=== PATIENT | male | born 1940 | race Caucasian/White ===

== ENCOUNTER 2016-06-17 10:44 | Inpatient (IN) | payer MEDICARE, BC ==
[~2016-06-17] VITALS: Ht 180.3 cm; Wt 114.7 kg
[2016-06-17] VITALS (8 sets, daily range): BP systolic 109–163; RESP 16–26; TEMP 97.4–99; Ht 180.3 cm; Wt 114.7 kg
[2016-06-17] MEDS ORDERED: ACETAMINOPHEN 325 MG TAB PO PRN (11:15)
[2016-06-17] MEDS ORDERED: GLUCAGON 1 MG VIAL IM PRN (11:15)
[2016-06-17] MEDS ORDERED: ONDANSETRON 4 MG VIAL IV PRN (11:15)
[2016-06-17] MEDS ORDERED: MAG HYDROX 30 ML UDC PO PRN (11:15)
[2016-06-17] MEDS ORDERED: SODIUM CHLORIDE 0.9% 1,000 ML IV SCH (11:15)
[2016-06-17] MEDS ORDERED: ALU/MAG/SIM 30 ML UDC PO PRN (11:15)
[2016-06-17] MEDS ORDERED: PANTOPRAZOLE 40 MG VIAL IV SCH (11:15)
[2016-06-17] MEDS ORDERED: DEXTROSE 50% SYRINGE 50 ML IV PRN (11:15)
[2016-06-17] MEDS ORDERED: IVIG IV SCH (17:15)
[2016-06-17] MEDS ORDERED: FILL PIGGYBACK IV SCH (17:15)
[2016-06-17] MEDS: LEVOTHYROXINE 0.175 MG TAB PO SCH (20:00)
[2016-06-17] MEDS: KCL CR 8 MEQ TAB PO SCH (20:00)
[2016-06-17] MEDS: Furosemide 20 MG TAB PO SCH (20:00)
[2016-06-17] MEDS: [UNRECOGNIZED DRUG - OTHER] IV SCH (20:00)
[2016-06-17] MEDS: SODIUM CHLORIDE 0.9% IV SCH (20:00)
[2016-06-17] MEDS: DOXYCYCLINE 100 MG in SODIUM CHLORIDE 0.9% 250 ML IV SCH (21:19)
[2016-06-17] MEDS: novoLOG MIX 70/30 INSULIN SUBQ SCH (21:19)
[2016-06-18] VITALS (18 sets, daily range): BP systolic 139–181; RESP 18–28; TEMP 97.4–98.8
[2016-06-18] MEDS: FILL PIGGYBACK IV SCH ×2 (02:00→21:02)
[2016-06-18] MEDS: IVIG IV SCH ×2 (02:00→21:02)
[2016-06-18] MEDS: LEVOTHYROXINE 0.175 MG TAB PO SCH (04:37)
[2016-06-18] MEDS: PANTOPRAZOLE 40 MG TAB PO SCH ×2 (04:37→09:55)
[2016-06-18] MEDS ORDERED: DIPHENHYDRAMINE 25 MG CAP PO ONE (07:00)
[2016-06-18] MEDS ORDERED: ACETAMINOPHEN 325 MG TAB PO ONE (07:00)
[2016-06-18] MEDS: DOXYCYCLINE 100 MG in SODIUM CHLORIDE 0.9% 250 ML IV SCH ×2 (09:52→20:37)
[2016-06-18] MEDS: novoLOG MIX 70/30 INSULIN SUBQ SCH (09:54)
[2016-06-18] MEDS: KCL CR 8 MEQ TAB PO SCH (09:55)
[2016-06-18] MEDS: [UNRECOGNIZED DRUG - OTHER] IV SCH (09:55)
[2016-06-18] MEDS: SODIUM CHLORIDE 0.9% IV SCH (09:55)
[2016-06-18] MEDS: Furosemide 20 MG TAB PO SCH (09:56)
[2016-06-18] MEDS ORDERED: LEVEMIR INSULIN SUBQ ONE (12:00)
[2016-06-18] MEDS ORDERED: novoLOG MIX 70/30 INSULIN SUBQ SCH (17:00)
[2016-06-18] MEDS: FAMOTIDINE 20 MG INJ IV SCH (17:16)
[2016-06-18] MEDS ORDERED: Furosemide 20 MG/2 ML VIAL IV ONE (21:00)
[2016-06-19] VITALS (19 sets, daily range): BP systolic 152–195; RESP 16–20; TEMP 97.4–98.3
[2016-06-19] MEDS: FAMOTIDINE 20 MG INJ IV SCH ×2 (00:37→08:44)
[2016-06-19] MEDS ORDERED: novoLOG MIX 70/30 INSULIN SUBQ SCH (08:00)
[2016-06-19] MEDS: LEVOTHYROXINE 0.175 MG TAB PO SCH (08:44)
[2016-06-19] MEDS: KCL CR 8 MEQ TAB PO SCH (08:45)
[2016-06-19] MEDS: Furosemide 20 MG TAB PO SCH (08:45)
[2016-06-19] MEDS: DOXYCYCLINE 100 MG in SODIUM CHLORIDE 0.9% 250 ML IV SCH ×2 (08:48→20:51)
[2016-06-19] MEDS: [UNRECOGNIZED DRUG - OTHER] IV SCH (11:31)
[2016-06-19] MEDS: SODIUM CHLORIDE 0.9% IV SCH (11:31)
[2016-06-19] MEDS ORDERED: amLODIPine 2.5 MG TAB PO SCH (15:30)
[2016-06-19] MEDS: METOPROLOL XL 50 MG TAB PO SCH (16:23)
[2016-06-19] MEDS: novoLOG MIX 70/30 INSULIN SUBQ SCH (18:06)
[2016-06-19] MEDS ORDERED: METOPROLOL XL 50 MG TAB PO SCH (21:00)
[2016-06-19] MEDS ORDERED: cloNIDine 0.2 MG TAB PO PRN (21:35)
[2016-06-19] MEDS ORDERED: amLODIPine 5 MG TAB PO ONE (21:35)
[2016-06-19] MEDS: IVIG IV SCH (21:50)
[2016-06-19] MEDS: FILL PIGGYBACK IV SCH (21:50)
[2016-06-20] VITALS (8 sets, daily range): BP systolic 157–179; RESP 18–20; TEMP 97.2–97.7
[2016-06-20] MEDS: LEVOTHYROXINE 0.175 MG TAB PO SCH (05:58)
[2016-06-20] MEDS ORDERED: PANTOPRAZOLE 40 MG TAB PO SCH (07:00)
[2016-06-20] MEDS: DOXYCYCLINE 100 MG in SODIUM CHLORIDE 0.9% 250 ML IV SCH ×2 (08:15→20:48)
[2016-06-20] MEDS: novoLOG MIX 70/30 INSULIN SUBQ SCH ×2 (08:55→17:37)
[2016-06-20] MEDS: METOPROLOL XL 50 MG TAB PO SCH (08:56)
[2016-06-20] MEDS ORDERED: amLODIPine 5 MG TAB PO SCH ×2 (09:00→21:00)
[2016-06-20] MEDS: [UNRECOGNIZED DRUG - OTHER] IV SCH (10:32)
[2016-06-20] MEDS: SODIUM CHLORIDE 0.9% IV SCH (10:32)
[2016-06-20] MEDS ORDERED: novoLOG MIX 70/30 INSULIN SUBQ SCH (17:00)
[2016-06-20] MEDS: FILL PIGGYBACK IV SCH (20:48)
[2016-06-20] MEDS: IVIG IV SCH (20:48)
[2016-06-20] MEDS: amLODIPine 5 MG TAB PO SCH (21:13)
[2016-06-21 03:36] VITALS: BP_SYST 168; RESP 20; TEMP 97.4
[2016-06-21] MEDS: LEVOTHYROXINE 0.175 MG TAB PO SCH (06:41)
[2016-06-21 07:40] VITALS: BP_SYST 161; RESP 18; TEMP 97.4
[2016-06-21] MEDS: DOXYCYCLINE 100 MG in SODIUM CHLORIDE 0.9% 250 ML IV SCH ×2 (08:15→20:14)
[2016-06-21] MEDS: METOPROLOL XL 50 MG TAB PO SCH (08:55)
[2016-06-21] MEDS: novoLOG MIX 70/30 INSULIN SUBQ SCH ×2 (08:55→17:45)
[2016-06-21] MEDS: amLODIPine 5 MG TAB PO SCH ×2 (08:55→20:41)
[2016-06-21] MEDS: [UNRECOGNIZED DRUG - OTHER] IV SCH (10:27)
[2016-06-21] MEDS: SODIUM CHLORIDE 0.9% IV SCH (10:27)
[2016-06-21 11:34] VITALS: BP_SYST 170; RESP 21; TEMP 97.8
[2016-06-21 14:46] VITALS: BP_SYST 169; RESP 16; TEMP 97.2
[2016-06-21] MEDS ORDERED: novoLOG MIX 70/30 INSULIN SUBQ SCH (17:00)
[2016-06-21 19:35] VITALS: BP_SYST 163; RESP 18; TEMP 97.7
[2016-06-21 23:32] VITALS: BP_SYST 145; RESP 20; TEMP 97.5
[2016-06-22] VITALS (7 sets, daily range): BP systolic 146–163; RESP 18–20; TEMP 97.3–97.8
[2016-06-22] MEDS: LEVOTHYROXINE 0.175 MG TAB PO SCH (07:06)
[2016-06-22] MEDS: DOXYCYCLINE 100 MG in SODIUM CHLORIDE 0.9% 250 ML IV SCH ×2 (08:14→20:13)
[2016-06-22] MEDS: METOPROLOL XL 50 MG TAB PO SCH (08:38)
[2016-06-22] MEDS: amLODIPine 5 MG TAB PO SCH ×2 (08:38→20:13)
[2016-06-22] MEDS: novoLOG MIX 70/30 INSULIN SUBQ SCH ×2 (08:39→17:21)
[2016-06-22] MEDS: SODIUM CHLORIDE 0.9% IV SCH (10:12)
[2016-06-22] MEDS: cloNIDine 0.1 MG TAB PO SCH ×2 (10:12→20:13)
[2016-06-22] MEDS: [UNRECOGNIZED DRUG - OTHER] IV SCH (10:12)
[2016-06-22] MEDS: LEVEMIR INSULIN SUBQ SCH (10:13)
[2016-06-23 03:45] VITALS: BP_SYST 150; RESP 18; TEMP 97.7
[2016-06-23] MEDS: LEVOTHYROXINE 0.175 MG TAB PO SCH (06:09)
[2016-06-23 07:37] VITALS: BP_SYST 157; RESP 16; TEMP 97.5
[2016-06-23] MEDS: LEVEMIR INSULIN SUBQ SCH (08:09)
[2016-06-23] MEDS: novoLOG MIX 70/30 INSULIN SUBQ SCH (08:27)
[2016-06-23] MEDS: METOPROLOL XL 50 MG TAB PO SCH (08:27)
[2016-06-23] MEDS: DOXYCYCLINE 100 MG in SODIUM CHLORIDE 0.9% 250 ML IV SCH (08:27)
[2016-06-23] MEDS: amLODIPine 5 MG TAB PO SCH (08:27)
[2016-06-23] MEDS: cloNIDine 0.1 MG TAB PO SCH (08:27)
[2016-06-23] MEDS ORDERED: PREDNISONE 20 MG TAB PO SCH (09:00)
[2016-06-23 11:01] VITALS: BP_SYST 157; RESP 16; TEMP 97.5
[2016-06-23 11:18] VITALS: BP_SYST 143; RESP 18
== END 2016-06-23 13:09 | disposition home or self-care (01) | DRG 813 ==
LOC: ENRESERVDT → ENRESERVTM → ENPENDDIS 11:08 → 5THE 11:08
PROVIDERS: ADMIT Internal Medicine; ATTEND Internal Medicine
CPT/HCPCS: 36430; 80048; 80053; 81001; 82553; 82607; 82746; 82947; 83010; 83615; 83735; 83880; 84439; 84443; 84484; 85007; 85025; 85027; 85379; 85610; 85652; 85730; 86141; 86645; 86663; 86664; 86665; 86666; 86677; 86701; 86704; 86705; 86706; 86708; 86709; 86757; 87040; 87088; 94799